=== PATIENT | female | born 1975 | race Caucasian/White ===

== ENCOUNTER 2021-05-20 13:04 | Emergency (ER) | payer SELFPAY ==
[~2021-05-20] VITALS: Ht 157.4 cm; Wt 72.4 kg
[2021-05-20 13:08] VITALS: BP 142/95
[2021-05-20] MEDS ORDERED: CARB100C9 PO (13:48)
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
== END 2021-05-20 14:34 | disposition home or self-care (01) ==
LOC: ER 13:06
DX: S00.83XA Contusion of other part of head, initial encounter (principal); G50.0 Trigeminal neuralgia; F17.210 Nicotine dependence, cigarettes, uncomplicated; Y04.2XXA Assault by strike against or bumped into by another person, initial encounter
CPT/HCPCS: 70150

== ENCOUNTER 2023-05-19 15:57 | Emergency (ER) | payer SELFPAY ==
[~2023-05-19] VITALS: Ht 157.4 cm; Wt 81.6 kg
[~2023-05-19 15:57] MED LIST: CARB100C9 PO
--- NOTE | 2023-05-19 16:51 | ED Integumentary General ---
General Chief Complaint: Bite-Animal/Human/Insect Stated Complaint: INSECT BITE ON ABD, CRAMPING, BACK PAIN Nursing Triage Note: PT AMB TO [facility] WITH CC OF SPIDER BITE. PT STATES THAT SHE NOTICED BITE ON TUESDAY MORNING. PT REPORTS THAT HER STOMACH IS RED AND ITCH. PT HAS BEEN ICING STOMACH. Source: patient Exam Limitations: no limitations History of Present Illness Date Seen by Provider: May 19, 2023 Time Seen by Provider: 14:24 Initial Comments 48-year-old female presents to the ER with reports of a insect bite to her left lower abdomen. She states that she first noticed it on Tuesday evening. She reports she has been using antibiotic ointment on it, states that the area keeps getting larger. She states that just prior to arrival, she noticed a faint white ring around the puncture wounds. She reports that 2 nights ago she had abdominal cramping and lower back pain. States she has not had any abdominal pain since then. She denies fever and body aches. Patient also reports she has been getting abscesses in her groin area, she has a healing wound in the right l ower abdomen along her pant line, she has another small 1 in her left lower abdomen under the pant line. Allergies and Home Medications Allergies Coded Allergies: Penicillins (Verified Allergy, Unknown, 05/19/23) Patient Home Medication List Home Medication List Reviewed: Yes Carbamazepine (Carbamazepine) 100 Mg Cpmp.12hr, 100 MG PO BID Prescribed by: JAMISON REYES on 05/20/21 1348 Sulfamethoxazole/Trimethoprim (Bactrim Ds Tablet) 1 Each Tablet, 1 EACH PO BID Prescribed by: Ceci Melendrez on 05/19/23 1655 Review of Systems Review of Systems Constitutional: see HPI Past Ypixkkr-Xffpyi-Euvish Hx Patient Social History Tobacco Use?: Yes Tobacco type used: Cigarettes Substance use?: No Alcohol Use?: No Past Medical History Surgery/Hospitalization HX: MS Physical Exam Vital Signs Vital Signs - First Documented 05/19/23 16:18 Temp 36.9 Pulse 103 B/P (MAP) 134/94 (107) Pulse Ox 97 O2 Delivery Room Air Capillary Refill : General Appearance: WD/WN, no apparent distress Neck: supple, normal inspection Cardiovascular: regular rate, rhythm Respiratory: lungs clear, normal breath sounds, no respiratory distress, no accessory muscle use Extremities: normal range of motion, normal inspection Neurologic/Psychiatric: alert, normal mood/affect Skin: normal color, warm/dry Skin Problem Location: torso Skin Problem Character: erythema (4 small puncture wounds surrounded by faint white ring, surrounded by more erythema, no induration or fluctuation), other (Small abscess to right lower abdomen under pant line, small area of induration, very small area of fluctuation) Progress/Results/Core Measures Results/Orders Vital Signs/I&O 05/19/23 05/19/23 16:18 17:05 Temp 36.9 Pulse 103 95 B/P (MAP) 134/94 (107) 103/84 Pulse Ox 97 95 O2 Delivery Room Air Room Air Blood Pressure Mean: 107 Progress Progress Note : Progress Note Patient seen and evaluated, resting comfortably in bed, no acute distress. Based on exam and symptoms, this is likely a brown recluse or black spider bite. Area is red, patient denies pain, only reports itching. She also has a small abscess to the left lower abdomen where her pants sit on her abdomen. It is a very small abscess, I do not think that draining it would provide much drainage. Will treat with Bactrim. Instructed to monitor location of bite, also to monitor for systemic symptoms like fever and body aches. Patient instructed to follow-up with primary care provider. Discharge instructions and return precautions provided. Departure Impression Primary Impression: Spider bite wound Disposition: 01 HOME, SELF-CARE Condition: Stable Departure-Patient Inst. Decision time for Depature: 16:51 Referrals: NO,LOCAL PHYSICIAN (PCP/Family) Primary Care Physician Patient Instructions: Insect Bites and Stings (DC) Add. Discharge Instructions: Complete full course of antibiotic as directed. Monitor the site for development of a wound, if this occurs follow-up with your primary care provider. Return for systemic symptoms like fever, body aches, severe muscle/abdomen cramping, or any other new, concerning, or worsening symptoms. All discharge instructions reviewed with patient and/or family. Voiced understanding. Scripts Sulfamethoxazole/Trimethoprim (Bactrim Ds Tablet) 1 Each Tablet 1 EACH PO BID for 7 Days, #14 TAB 0 Refills Prov: CECI MONTERROSO APRN 05/19/23 CECI MONTERROSO APRN May 19, 2023 16:51
[2023-05-19] MEDS ORDERED: SULF1TAB38 PO (16:55)
[2023-05-19 17:05] VITALS: BP 103/84
== END 2023-05-19 17:07 | disposition home or self-care (01) ==
LOC: EDUNIT# 15:57 → ER 16:01
DX: S31.133A Puncture wound of abdominal wall without foreign body, right lower quadrant without penetration into peritoneal cavity, initial encounter (principal); L02.211 Cutaneous abscess of abdominal wall; F17.210 Nicotine dependence, cigarettes, uncomplicated; Z88.0 Allergy status to penicillin; W57.XXXA Bitten or stung by nonvenomous insect and other nonvenomous arthropods, initial encounter
CPT/HCPCS: 99281

== ENCOUNTER 2023-06-08 12:48 | Emergency (ER) | payer SELFPAY ==
[~2023-06-08] VITALS: Ht 157.4 cm; Wt 81.6 kg
[~2023-06-08 12:48] MED LIST changes: +SULF1TAB38 PO
--- NOTE | 2023-06-08 13:13 | ED Upper Extremity ---
General Chief Complaint: Upper Extremity Stated Complaint: SWOLLEN HANDS Source: patient Exam Limitations: no limitations (RAY GROVE) History of Present Illness Date Seen by Provider: Jun 08, 2023 Time Seen by Provider: 13:12 Initial Comments Patient is a 47-year-old female presents ED with right hand pain. Pain started this past Tuesday after lifting furniture. She reports a sharp pain from the wrist down into the middle finger. She noticed some swelling of the knuckles. She denies any pain of the left hand. She states pain is worse with movement. She wakes up with the pain in her hand. She denies of any specific injury. Patient denies any chest pain, cough, shortness of breath, pain with urination, frequent urination, headache, dizziness. She denies taking anything for pain. Denies using any splint for comfort (RAY GROVE) Allergies and Home Medications Allergies Coded Allergies: Penicillins (Verified Allergy, Unknown, 05/19/23) Patient Home Medication List Home Medication List Reviewed: Yes (RAY GROVE) Carbamazepine (Carbamazepine) 100 Mg Cpmp.12hr, 100 MG PO BID Prescribed by: JAMISON REYES on 05/20/21 1348 Methylprednisolone (Medrol Dose pack) 4 Mg Tab, 4 MG PO UD Prescribed by: SHANIKA TOLLIVER on 06/08/23 1413 Sulfamethoxazole/Trimethoprim (Bactrim Ds Tablet) 1 Each Tablet, 1 EACH PO BID Prescribed by: Ceci Melendrez on 05/19/23 1655 Review of Systems Constitutional: No diaphoresis, No fever, No malaise, No weakness EENTM: No no symptoms reported, No ear discharge, No hearing loss, No ear pain, No blurred vision Respiratory: No cough, No dyspnea on exertion Cardiovascular: No chest pain Gastrointestinal: No abdominal pain, No diarrhea, No nausea, No vomiting Genitourinary: No decreased output, No discharge, No dysuria, No frequency Musculoskeletal: No back pain; joint pain, muscle pain Skin: No change in color, No change in hair/nails (RAY GROVE) All Other Systems Reviewed Negative Unless Noted: Yes (RAY GROVE) Past Ynfsfeo-Lqksuh-Wxfoqj Hx Patient Social History Tobacco Use?: Yes Tobacco type used: Cigarettes Substance use?: No Alcohol Use?: No (RAY GROVE) Past Medical History Surgery/Hospitalization HX: MS (RAY GROVE) Physical Exam Vital Signs Vital Signs - First Documented 06/08/23 13:00 Temp 36.4 Pulse 99 B/P (MAP) 141/83 (102) Pulse Ox 98 O2 Delivery Room Air (GAUTAM MATOS MD) Vital Signs Capillary Refill : (RAY GROVE) Height, Weight, BMI Height: '" Weight: lbs. oz. kg; 32.00 BMI Method: General Appearance: WD/WN, no apparent distress HEENT: PERRL/EOMI, normal ENT inspection, TMs normal, pharynx normal Neck: non-tender, full range of motion, supple Cardiovascular: regular rate, rhythm, no edema, no gallop, no JVD Respiratory: chest non-tender, lungs clear, normal breath sounds, no respiratory distress, no accessory muscle use Gastrointestinal: normal bowel sounds, non tender, soft Back: normal inspection, no CVA tenderness, no vertebral tenderness Shoulder: normal inspection, non-tender, no evidence of injury Elbow/Forearm: normal inspection, non-tender, normal ROM, Right Wrist: Yes pain (Tenderness to palpate the volar side of the right wrist overlying the medial nerve. Positive phalen and tinel sign) Hand: normal ROM, Right (No evidence of swelling of the digits. Neurovascular intact. 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, no motor/sensory deficits, alert, normal mood/affect, oriented x 3 Skin: normal color, warm/dry (RAY GROVE) Progress/Results/Core Measures Results/Orders Lab Results Laboratory Tests Test 06/08/23 13:32 Range/Units White Blood Count 8.4 4.3-11.0 10^3/uL Red Blood Count 4.09 3.80-5.11 10^6/uL Hemoglobin 13.5 11.5-16.0 g/dL Hematocrit 38 35-52 % Mean Corpuscular Volume 94 80-99 fL Mean Corpuscular Hemoglobin 33 25-34 pg Mean Corpuscular Hemoglobin Concent 35 32-36 g/dL Red Cell Distribution Width 13.3 10.0-14.5 % Platelet Count 290 130-400 10^3/uL Mean Platelet Volume 9.7 9.0-12.2 fL Immature Granulocyte % (Auto) 1 % Neutrophils (%) (Auto) 62 42-75 % Lymphocytes (%) (Auto) 29 12-44 % Monocytes (%) (Auto) 6 0-12 % Eosinophils (%) (Auto) 2 0-10 % Basophils (%) (Auto) 0 0-10 % Neutrophils # (Auto) 5.3 1.8-7.8 10^3/uL Lymphocytes # (Auto) 2.4 1.0-4.0 10^3/uL Monocytes # (Auto) 0.5 0.0-1.0 10^3/uL Eosinophils # (Auto) 0.2 0.0-0.3 10^3/uL Basophils # (Auto) 0.0 0.0-0.1 10^3/uL Immature Granulocyte # (Auto) 0.1 0.0-0.1 10^3/uL Sodium Level 137 135-145 MMOL/L Potassium Level 3.5 L 3.6-5.0 MMOL/L Chloride Level 105 98-107 MMOL/L Carbon Dioxide Level 20 L 21-32 MMOL/L Anion Gap 12 5-14 MMOL/L Blood Urea Nitrogen 10 7-18 MG/DL Creatinine 0.78 0.60-1.30 MG/DL Estimat Glomerular Filtration Rate 95 BUN/Creatinine Ratio 13 Glucose Level 127 H 70-105 MG/DL Calcium Level 9.3 8.5-10.1 MG/DL Corrected Calcium 9.3 8.5-10.1 MG/DL Total Bilirubin 0.4 0.1-1.0 MG/DL Aspartate Amino Transf (AST/SGOT) 18 5-34 U/L Alanine Aminotransferase (ALT/SGPT) 23 0-55 U/L Alkaline Phosphatase 68 40-136 U/L Total Protein 7.3 6.4-8.2 GM/DL Albumin 4.0 3.2-4.5 GM/DL (GAUTAM MATOS MD) Departure Communication (PCP) Patient lifting furniture on Tuesday started having sharp pain in her hands. Pain is worse on the right. No current numbness or tingling or pain in the left hand. Exam of the right hand shows no obvious swelling. Normal range of motion. She does have a positive phalen and tinel sign concerning for carpal tunnel. Numbness along the middle finger. Negative for cubital tunnel syndrome. She has no pain in her lower extremities. No history of gout, osteoarthritis, rheumatoid arthritis. She has no erythematous joints. She has no chest pain or shortness of breath headache dizziness unilateral muscle weakness. Patient is concerned that this may be related to her heart or kidneys. Clinically does not appear to be cardiac. Did add a CBC and CMP which did show reassuring lab work. At this time suggest anti-inflammatories which she has 600 mg ibuprofen at home which I recommend continue every 8 hours. She was put in a Velcro splint for comfort. Wear the splint throughout the day and at night since she states she wakes up with pain. Pain is worse with movement. Will discharge with a Medrol Dosepak. Provided orthopedic outpatient follow-up. If any worsening symptoms return back to ED. (RAY GROVE) Impression Primary Impression: Carpal tunnel syndrome Disposition: HOME, SELF-CARE Condition: Stable Departure-Patient Inst. Decision time for Depature: 14:12 (RAY GROVE) Referrals: TORY LEMUS APRN (PCP) Primary Care Physician MAXIMO REID MD Patient Instructions: Carpal Tunnel Injection Add. Discharge Instructions: Keep the wrist in the splint for comfort. Take 600 mg ibuprofen every 8 hours. Solu-Medrol Dosepak. Orthopedic outpatient follow-up. All discharge instructions reviewed with patient and/or family. Voiced understanding. Scripts Methylprednisolone (Medrol Dose pack) 4 Mg Tab 4 MG PO UD for 6 Days, #21 TAB as directed per dose pack Prov: RAY GROVE 06/08/23 ATTENDING PHYSICIAN NOTE: I was physically present as attending physician in the emergency department during the care of this patient, but I was not directly involved in the decision making or delivery of care for this patient. (GAUTAM MATOS MD) RAY GROVE Jun 08, 2023 13:13 GAUTAM MATOS MD Jun 09, 2023 17:23
[2023-06-08 13:36] LABS: BASOPHILS % (AUTO) 0 % (0-10); EOSINOPHILS # (AUTO) 0.2 10^3/uL (0.0-0.3); EOSINOPHILS % (AUTO) 2 % (0-10); HEMATOCRIT 38 % (35-52); HEMOGLOBIN 13.5 g/dL (11.5-16.0); LYMPHOCYTES # (AUTO) 2.4 10^3/uL (1.0-4.0); LYMPHOCYTES % (AUTO) 29 % (12-44); MEAN CORPUSCULAR HEMOGLOBIN 33 pg (25-34); MEAN CORPUSCULAR HGB CONC 35 g/dL (32-36); MEAN CORPUSCULAR VOLUME 94 fL (80-99); MEAN PLATELET VOLUME 9.7 fL (9.0-12.2); MONOCYTES # (AUTO) 0.5 10^3/uL (0.0-1.0); MONOCYTES % (AUTO) 6 % (0-12); NEUTROPHILS # (AUTO) 5.3 10^3/uL (1.8-7.8); NEUTROPHILS % (AUTO) 62 % (42-75); PLATELET COUNT 290 10^3/uL (130-400); WHITE BLOOD COUNT 8.4 10^3/uL (4.3-11.0)
[2023-06-08 13:47] LABS: POTASSIUM 3.5 MMOL/L (3.6-5.0)
[2023-06-08 13:48] LABS: CALCIUM 9.3 MG/DL (8.5-10.1)
[2023-06-08 13:49] LABS: TOTAL PROTEIN 7.3 GM/DL (6.4-8.2)
[2023-06-08 13:51] LABS: BILIRUBIN,TOTAL 0.4 MG/DL (0.1-1.0)
[2023-06-08 13:52] LABS: CREATININE SERUM 0.78 MG/DL (0.60-1.30)
[2023-06-08] MEDS ORDERED: NF-METHYLP PO (14:13)
[2023-06-08 14:15] VITALS: BP 109/73
== END 2023-06-08 14:20 | disposition home or self-care (01) ==
LOC: EDUNIT# 12:48 → ER 12:50
DX: G56.01 Carpal tunnel syndrome, right upper limb (principal); F17.210 Nicotine dependence, cigarettes, uncomplicated
CPT/HCPCS: 36415; 80053; 85025